=== PATIENT | male | born 1945 ===

== ENCOUNTER → 2018-01-23 | Outpatient (CLI) | payer MEDICARE ==
[~2018-01-23] VITALS: Ht 157.5 cm; Wt 57.0 kg
[~2018-01-23] MED LIST: BUDE10.2 IH; IPRA4AER IH
[2018-01-23 13:44] VITALS: BP 133/73
== END | disposition home or self-care (01) ==
LOC: SRCNTR 13:38
PROVIDERS: ATTEND Internal Medicine
DX: J44.1 Chronic obstructive pulmonary disease with (acute) exacerbation (principal); F17.210 Nicotine dependence, cigarettes, uncomplicated
CPT/HCPCS: G0463

== ENCOUNTER → 2018-04-05 | Outpatient (CLI) | payer MEDICARE ==
[~2018-04-05] VITALS: Ht 157.5 cm; Wt 56.0 kg
[2018-04-05 09:50] VITALS: BP 138/72
== END | disposition home or self-care (01) ==
LOC: SRCNTR 09:47
PROVIDERS: ATTEND Internal Medicine
DX: J44.9 Chronic obstructive pulmonary disease, unspecified (principal); F17.200 Nicotine dependence, unspecified, uncomplicated
CPT/HCPCS: G0463